=== PATIENT | male | born 1945 | race Caucasian/White ===

== ENCOUNTER 2016-06-14 08:23 | Day surgery (SDC) | payer MEDICARE ==
[2016-06-14] MEDS ORDERED: FENTANYL PF 100MCG/2ML VIAL IV ONE (14:06)
[2016-06-14] MEDS ORDERED: PROPOFOL 10 MG/ML VIAL IV ONE (14:06)
--- NOTE | 2016-06-18 08:51 | Operative Note ---
DATE OF SURGERY: 06/14/2016 SURGEON: Tono Welch MD OPERATION: ESOPHAGOGASTRODUODENOSCOPY. INDICATIONS: This is a 71-year-old male with a history of epigastric pain who presented for esophagogastroduodenoscopy. POSTOPERATIVE DIAGNOSES: 1. Normal esophagus. 2. Diffuse gastritis with erosions. 3. Duodenitis with duodenal ulcer. ANESTHESIA: Sedation is per Anesthesia. Pulse oximetry was monitored throughout the procedure to maintain O2 saturation of 90% or greater. Supplemental oxygen was administered via nasal cannula. Cardiac and vital signs were monitored throughout the duration of the procedure, and they were stable. The procedure of esophagogastroduodenoscopy and risks and benefits of the procedure, including the risk of bleeding and perforation, among others, were explained to the patient who voiced understanding and desired to have the procedure done. Physical examination was performed, and the patient was found stable for sedation. PROCEDURE: The patient was placed in the left lateral position. Sedation was initiated. A plastic bite block was inserted into the oral cavity. The Olympus [id number] gastroscope was introduced into the oral cavity and advanced to the proximal esophagus without difficulty. The esophageal mucosa was carefully examined upon introduction of the gastroscope. The proximal, mid, and distal esophageal mucosa appeared normal. The gastroscope was then advanced into the stomach, and surveillance of the stomach revealed diffuse erythema with erosions involving the gastric body and antrum but no ulcers were noted. The gastroscope was then advanced to the descending duodenum without difficulty. The duodenal bulb appeared diffusely erythematous with shallow ulcers that were noted. There were no mass lesions noted. The gastroscope was then withdrawn into the stomach and retroflexion was performed. There were no other lesions noted. The gastroscope was then withdrawn while carefully examining the gastric and esophageal mucosa. No other lesions noted. Multiple duodenal and gastric biopsies were obtained. He remained with stable vital signs and was transferred to the recovery room. RECOMMENDATIONS: 1. I will give him a trial of Protonix 40 mg p.o. daily since he has been on omeprazole without any significant help. 2. We will follow up on the biopsies. 3. I would be happy to see him back in the office as needed. Thank you for allowing me to participate in the care of your patient. Tono Welch MD CC: Dr. Curtis PEREZ
== END 2016-06-14 10:16 | disposition home or self-care (01) ==
LOC: HOP 08:23
PROVIDERS: ATTEND Internal Medicine Gastroenterology
DX: R10.13 Epigastric pain (principal); K29.50 Unspecified chronic gastritis without bleeding; K25.7 Chronic gastric ulcer without hemorrhage or perforation; K29.80 Duodenitis without bleeding; I10 Essential (primary) hypertension
CPT/HCPCS: 43239; 00740; J3010

== ENCOUNTER 2016-08-07 08:18 | Observation (INO) | payer MEDICARE ==
[2016-08-07 08:52] LABS: BASO % 0.5 % (0-6); EOS % 2.6 % (0-6); GRAN % 62.6 % (47-80); HEMATOCRIT 45.4 % (42.0-52.0); HEMOGLOBIN 15.3 gm/dl (14.0-18.0); LYMPH % 24.7 % (16-45); MEAN CORPUSCULAR HEMOGLOBIN 32.7 pg (27-33); MEAN CORPUSCULAR HGB CONC 33.7 g/dl (32-36); MEAN PLATELET VOLUME 9.8 fl (7.4-10.4); MONO % 9.6 % (0-9); PLATELET COUNT 228 K/uL (130-400); RED BLOOD COUNT 4.68 M/uL (4.40-5.70); RED CELL DISTRIBUTION WIDTH 12.7 % (11.5-14.5); WHITE BLOOD COUNT W/O DIFF 7.3 K/uL (4.2-12.2)
--- NOTE | 2016-08-07 08:54 | Emergency Department Record ---
History of Present Illness - General Chief Complaint: Chest Pain Stated Complaint: WEIRD SENSATION ON CHEST Time Seen by Provider: 08/07/16 08:33 Source: Patient Mode of Arrival: Ambulatory Limitations: No limitations - History of Present Illness Initial Comments: The patient is here with a one month hx of a "funny sensation" to the R upper chest. The discomfort is intermittent and seems to be worse the last few days. He denies any pain, SOB, JUJU, sweating or nausea with the sensation. Due to the symptoms being worse the last couple of days he decided to come to the ER. There is no KAISER but he has had mild CP with exertion. There has been no cough, fever or any recent illnesses. Onset/Timin -: Month(s) Pain Location: Right chest Severity: Mild Severity scale (1-10): 4 Quality: Aching Consistency: Intermittent Improves With: Nothing Context: New medications Treatments Prior to Arrival: None - Related Data Home Medications Medication Instructions Recorded Confirmed Last Taken Alprazolam [Xanax] 0.5 mg PO Q8H PRN 01/07/15 08/07/16 1 Day Ago Calcium Carb/Vitamin D3/Vit K1 1 each PO DAILY 01/07/15 08/07/16 1 Day Ago [Calcium + Vit D & K Chew Tab] Cholecalciferol (Vitamin D3) 5,000 unit PO DAILY 01/07/15 08/07/16 1 Day Ago [Vitamin D3] Cyanocobalamin (Vitamin B-12) 2,500 mcg SL DAILY 01/07/15 08/07/16 1 Day Ago [Vitamin B-12] Fluticasone Propionate [Flonase 15.8 ml NS DAILY 01/07/15 08/07/16 1 Day Ago Allergy Relief] Gabapentin [Neurontin] 300 mg PO TID 01/07/15 08/07/16 1 Day Ago Glucosamine Sulfate/MSM 1 each PO DAILY 01/07/15 08/07/16 1 Day Ago [Glucosamine-MSM Caplet] Hydrocodone/Acetaminophen [[place] 2 tab PO Q6H PRN 01/07/15 08/07/16 1 Day Ago 7.5mg/325mg] Hydroxychloroquine Sulfate 200 mg PO BID 01/07/15 08/07/16 1 Day Ago [Plaquenil] Lisinopril 20 mg PO DAILY 01/07/15 08/07/16 1 Day Ago Multivitamin [Multi-Vitamin Daily] 1 each PO DAILY 01/07/15 08/07/16 1 Day Ago Polyethylene Glycol 3350 1 packet PO DAILY 01/07/15 08/07/16 1 Day Ago Pravastatin Sodium [Pravachol] 10 mg PO DAILY 01/07/15 08/07/16 1 Day Ago Testosterone Cypionate [Testone 200 mg IM WEEKLY 01/07/15 08/07/16 1 Day Ago Cik] Duloxetine HCl [Cymbalta] 60 mg PO DAILY 05/14/15 08/07/16 1 Day Ago Allergies Allergy/AdvReac Type Severity Reaction Status Date / Time No Known Drug Allergies Allergy Verified 08/07/16 08:30 Travel Screening - Travel/Exposure Within Last 30 Days Have you traveled within the last 30 days?: No - Travel/Exposure Within Last Year Have you traveled outside the [place] in the last year?: No - Additonal Travel Details Have you been exposed to anyone with a communicable illness?: No - Travel Symptoms Symptom Screening: None Review of Systems Constitutional: Denies: Chills, Fever Eyes: Denies: Eye discharge ENT: Denies: Congestion Respiratory: Denies: Cough, Dyspnea Past Medical History - SOCIAL HISTORY Smoking Status: Never smoker Alcohol Use: None Drug Use: None - RESPIRATORY Hx Respiratory Disorders: No Hx Sleep Apnea: Yes Hx of CPAP: Yes - CARDIOVASCULAR Hx Cardio Disorders: Yes Hx Hypertension: Yes - NEURO Hx Neuro Disorders: Yes Hx Neuropathy: Yes - GI Hx GI Disorders: Yes Hx Reflux: Yes Hx Ulcer: Yes - Hx Genitourinary Disorders: Yes Hx Kidney Stones: Yes - ENDOCRINE Hx Endocrine Disorders: No Hx Diabetes: No Hx Thyroid Disease: No - MUSCULOSKELETAL Hx Musculoskeletal Disorders: Yes Comment:: neuropathy pain - PSYCH Hx Psych Problems: Yes Hx Anxiety: Yes - HEMATOLOGY/ONCOLOGY Hx Hematology/Oncology Disorders: No Family Medical History Any Significant Family History?: Yes Hx Diabetes: Mother, Brother/Sister Physical Exam - General General Appearance: Alert, Oriented x3, Cooperative, No acute distress - Head Head exam: Atraumatic, Normal inspection - Eye Eye exam: Normal appearance, PERRL - ENT Throat exam: Normal inspection. negative: Tonsillar erythema, Tonsillar exudate - Neck Neck exam: Normal inspection, Full ROM. negative: Tenderness - Respiratory Respiratory exam: Normal lung sounds bilaterally. negative: Respiratory distress - Cardiovascular Cardiovascular Exam: Regular rate, Normal rhythm, Normal heart sounds - GI/Abdominal GI/Abdominal exam: Soft, Normal bowel sounds. negative: Tenderness - Extremities Extremities exam: Normal inspection, Full ROM, Normal capillary refill. negative: Tenderness - Back Back exam: Reports: Normal inspection - Neurological Neurological exam: Alert, Normal gait. negative: Abnormal gait, Motor sensory deficit - Psychiatric Psychiatric exam: negative: Agitated, Anxious, Depressed Course Vital Signs 08/07/16 08:21 Temperature 98.2 F Pulse Rate 96 H Respiratory 18 Rate Blood Pressure 147/82 Pulse Ox 96 - Reevaluation(s) Reevaluation #1: The patient is doing very well at this time. He denies any pain or discomfort. I did discuss the lab results with him and the fact that the heart lab tests are WNL. 08/07/16 10:36 Reevaluation #2: I did discuss the case with Dr. Kirkland and she does accept the patient for admission. 08/07/16 10:50 Medical Decision Making - Data Complexity MDM Data: Labs Ordered and/or Reviewed, X-Ray Ordered and/or Reviewed, EKG Ordered and/or Reviewed - Lab Data Result diagrams: 08/07/16 08:45 08/07/16 08:45 - EKG Data -: EKG Interpreted by Me EKG: No Acute Changes, Normal EKG - Radiology Data Radiology results: Report reviewed (CXR: Neg) Disposition Disposition: Admit Clinical Impression: Chest pain Qualifiers: Chest pain type: other chest pain Qualified Code(s): R07.89 - Other chest pain ; R07.8 - Other chest pain Disposition: Still a Patient at [facility] Decision to Admit: Admit from ER Decision to Admit Date: 08/07/16 Decision to Admit Time: 10:51 Accepting Physician: Marita Time Discussed w/Accepting Physician: 10:51 Condition: (2) Stable Forms: Patient Portal Access Time of Disposition: 10:51
[2016-08-07 09:04] LABS: ANION GAP 15.5 (7-16); BLOOD UREA NITROGEN 12 mg/dL (9-20); CARBON DIOXIDE 23.5 mmol/L (22-30); CREATINE PHOSPHOKINASE 277 U/L (55-170); CREATININE 0.8 mg/dL (0.66-1.25); EST GLOMERULAR FILTRATION RATE > 60 ml/min; GLUCOSE,RANDOM 147 mg/dL (70-110)
[2016-08-07 09:05] LABS: INR 0.95; PARTIAL THROMBOPLASTIN TIME 26.1 SECONDS (24.5-39.1); PROTHROMBIN TIME (PATIENT) 10.7 SECONDS (9.5-12.1)
[2016-08-07 09:16] LABS: CKMB 3.6 ug/L (0-6)
[2016-08-07 09:20] LABS: TROPONIN I < 0.012 ng/mL (0.00-0.034)
[2016-08-07] MEDS ORDERED: HYDROCODONE/APAP 10/325 TABLET PO ONE (10:29)
[2016-08-07] MEDS ORDERED: ASPIRIN 325 MG TAB ENTERIC-COATED PO ONE (10:50)
[2016-08-07] MEDS ORDERED: HYDROCODONE/APAP 10/325 TABLET PO PRN (12:45)
[2016-08-07] MEDS ORDERED: ONDANSETRON 4 MG ODT TABLET SL PRN (13:52)
--- NOTE | 2016-08-07 13:53 | History & Physical ---
History of Present Illness - Date of Service Date of Service for History & Physical: 08/07/16 - History of Present Illness Admitting Diagnosis: 1. Chest Pain, R/O MT. History of Present Illness: 71 yo M with past medical history of .... presents for one month hx of a "funny sensation" to the R upper chest that has been worsening. The discomfort is intermittent and seems to be worse the last few days. He denies any pain, SOB, JUJU, sweating or nausea with the sensation. Due to the symptoms being worse the last couple of days he decided to come to the ER today per report. There is no KAISER but he has had mild CP with exertion. There has been no cough, fever or any recent illnesses. Per ER, symptoms improved after benzodiazepine given. Admitted for ACS rule out. PSx: josette, back, lithotripsy, EGD< colonoscopy PMx: Sleep apnea with CPAP, HTN, neuropathy, GERD, ulcer, kidney stone, arthritis, anxiety PCP: Travel Screening - Travel/Exposure Within Last 30 Days Have you traveled within the last 30 days?: No - Travel/Exposure Within Last Year Have you traveled outside the [place] in the last year?: No - Additonal Travel Details Have you been exposed to anyone with a communicable illness?: No - Travel Symptoms Symptom Screening: None Review of Systems Constitutional: Denies: Chills, Fever Eyes: Denies: Eye discharge ENT: Denies: Congestion Respiratory: Denies: Cough, Dyspnea Past Medical History - SOCIAL HISTORY Smoking Status: Never smoker Alcohol Use: Rare Drug Use: None - RESPIRATORY Hx Respiratory Disorders: No Hx Sleep Apnea: Yes Hx of CPAP: Yes - CARDIOVASCULAR Hx Cardio Disorders: Yes Hx Hypertension: Yes - NEURO Hx Neuro Disorders: Yes Hx Neuropathy: Yes - GI Hx GI Disorders: Yes Hx Reflux: Yes Hx Ulcer: Yes - Hx Genitourinary Disorders: Yes Hx Kidney Stones: Yes - ENDOCRINE Hx Endocrine Disorders: No Hx Diabetes: No Hx Thyroid Disease: No - MUSCULOSKELETAL Hx Musculoskeletal Disorders: Yes Comment:: neuropathy pain - PSYCH Hx Psych Problems: Yes Hx Anxiety: Yes - HEMATOLOGY/ONCOLOGY Hx Hematology/Oncology Disorders: No Family Medical History Any Significant Family History?: Yes Hx Diabetes: Mother, Brother/Sister H&P Meds/Allergies - Allergies Allergies: Allergies Allergy/AdvReac Type Severity Reaction Status Date / Time No Known Drug Allergies Allergy Verified 08/07/16 08:30 - Home Medications Home Medications Medication Instructions Recorded Confirmed Last Taken Alprazolam [Xanax] 0.5 mg PO Q8H PRN 01/07/15 08/07/16 1 Day Ago Calcium Carb/Vitamin D3/Vit K1 1 each PO DAILY 01/07/15 08/07/16 1 Day Ago [Calcium + Vit D & K Chew Tab] Cholecalciferol (Vitamin D3) 5,000 unit PO DAILY 01/07/15 08/07/16 1 Day Ago [Vitamin D3] Cyanocobalamin (Vitamin B-12) 2,500 mcg SL DAILY 01/07/15 08/07/16 1 Day Ago [Vitamin B-12] Fluticasone Propionate [Flonase 15.8 ml NS DAILY 01/07/15 08/07/16 1 Day Ago Allergy Relief] Gabapentin [Neurontin] 300 mg PO TID 01/07/15 08/07/16 1 Day Ago Glucosamine Sulfate/MSM 1 each PO DAILY 01/07/15 08/07/16 1 Day Ago [Glucosamine-MSM Caplet] Hydrocodone/Acetaminophen [[place] 2 tab PO Q6H PRN 01/07/15 08/07/16 1 Day Ago 7.5mg/325mg] Hydroxychloroquine Sulfate 200 mg PO BID 01/07/15 08/07/16 1 Day Ago [Plaquenil] Lisinopril 20 mg PO DAILY 01/07/15 08/07/16 1 Day Ago Multivitamin [Multi-Vitamin Daily] 1 each PO DAILY 01/07/15 08/07/16 1 Day Ago Polyethylene Glycol 3350 1 packet PO DAILY 01/07/15 08/07/16 1 Day Ago Pravastatin Sodium [Pravachol] 10 mg PO DAILY 01/07/15 08/07/16 1 Day Ago Testosterone Cypionate [Testone 200 mg IM WEEKLY 01/07/15 08/07/16 1 Day Ago Cik] Duloxetine HCl [Cymbalta] 60 mg PO DAILY 05/14/15 08/07/16 1 Day Ago - Active Medications Active Medications: Current Medications Acetaminophen/Hydrocodone Bitart ([place] 10mg/325mg) 1 each PO QID PRN PRN Reason: Pain - General Acetaminophen/Hydrocodone Bitart ([place] 10mg/325mg) 2 each PO QID PRN PRN Reason: Pain - General Alprazolam (Xanax) 0.5 mg PO Q8H PRN PRN Reason: ANXIETY Aspirin (Ecotrin (Ec)) 325 mg PO DAILY BRADY Gabapentin (Neurontin) 300 mg PO TID BRADY Hydroxychloroquine Sulfate (Plaquenil) 400 mg PO 1800 BRADY Lisinopril (Zestril) 20 mg PO 1800 BRADY Polyethylene Glycol (Miralax) 17 gm PO 1800 BRADY Physical Exam - Vital Signs Vital Signs: Vital Signs - Last 24 Hrs Temp Pulse Resp BP Pulse Ox 08/07/16 13:09 98.2 F 88 130/82 96 08/07/16 12:01 90 20 08/07/16 11:09 98.2 F 79 16 135/83 95 - General General Appearance: Alert, Oriented x3, Cooperative, No acute distress Limitations: No limitations - Head Head exam: Atraumatic, Normal inspection - Eye Eye exam: Normal appearance, PERRL - ENT Throat exam: Normal inspection. negative: Tonsillar erythema, Tonsillar exudate - Neck Neck exam: Normal inspection, Full ROM. negative: Tenderness - Respiratory Respiratory exam: Normal lung sounds bilaterally. negative: Respiratory distress - Cardiovascular Cardiovascular Exam: Regular rate, Normal rhythm, Normal heart sounds - GI/Abdominal GI/Abdominal exam: Soft, Normal bowel sounds. negative: Tenderness - Extremities Extremities exam: Normal inspection, Full ROM, Normal capillary refill. negative: Tenderness - Back Back exam: Reports: Normal inspection - Neurological Neurological exam: Alert, Normal gait. negative: Abnormal gait, Motor sensory deficit - Psychiatric Psychiatric exam: negative: Agitated, Anxious, Depressed Results - Labs Result Diagrams: 08/07/16 08:45 08/07/16 08:45 VTE H&P Assessment - Risk for VTE Risk for VTE: Yes Risk Level: Low Risk Assessment Date: 08/07/16 Risk Assessment Time: 15:47 VTE Orders Placed or Will Be Placed: No VTE Reason for No Prophylaxis: Not Indicated (will be discharged tomorrow) Plan - Detailed Diagnosis and Plan (1) Chest pain Current Visit: Yes Status: Acute Qualifiers: Chest pain type: other chest pain Qualified Code(s): R07.89 - Other chest pain; R07.8 - Other chest pain Base Code: R07.9 - CHEST PAIN, UNSPECIFIED
[2016-08-07] MEDS: ALPRAZOLAM 0.25 MG TABLET PO PRN ×2 (14:43→22:57)
[2016-08-07] MEDS: HYDROCODONE/APAP 10/325 TABLET PO PRN ×2 (14:44→19:50)
[2016-08-07 15:46] LABS: CKMB 3.2 ug/L (0-6)
[2016-08-07 15:47] LABS: TROPONIN I < 0.012 ng/mL (0.00-0.034)
[2016-08-07] MEDS: GABAPENTIN 300 MG CAPSULE PO SCH ×2 (16:43→22:55)
[2016-08-07] MEDS ORDERED: HYDROXYCHLOROQUINE SULFATE 200 MG TABLET PO SCH (18:00)
[2016-08-07] MEDS ORDERED: POLYETHYLENE GLY 17 GM PACKET PO SCH (18:00)
[2016-08-07] MEDS ORDERED: LISINOPRIL 20 MG TABLET PO SCH (18:00)
[2016-08-08] MEDS: HYDROCODONE/APAP 10/325 TABLET PO PRN ×3 (00:28→12:45)
[2016-08-08 01:31] LABS: CKMB 2.3 ug/L (0-6); TROPONIN I < 0.012 ng/mL (0.00-0.034)
[2016-08-08] MEDS: GABAPENTIN 300 MG CAPSULE PO SCH ×2 (06:38→10:58)
--- NOTE | 2016-08-08 07:20 | RADIOLOGY REPORT ---
EXAM: CHEST, TWO VIEWS HISTORY: DIFFICULTY BREATHING. TECHNIQUE: Frontal and lateral views of the chest were performed. FINDINGS: The heart size is normal. No pulmonary vascular congestion. No infiltrate or pleural effusion. The osseous structures are normal. IMPRESSION: NEGATIVE CHEST EXAMINATION. JOB NUMBER: [id number] MTDD
--- NOTE | 2016-08-08 07:23 | ULTRASOUND REPORT ---
EXAM: ULTRASOUND OF THE AORTA HISTORY: PAIN. TECHNIQUE: Sonographic evaluation of the abdominal aorta was performed using mckeon scale imaging with the addition of Doppler. Comparison: None. FINDINGS: The proximal abdominal aorta measures 1.4 x 1.6 cm. The mid abdominal aorta measures 1.6 x 0.9 cm. The distal abdominal aorta measures 1.1 x 1.3 cm. The iliac arteries measure 7 mm x 9 mm and 8 mm x 11 mm. IMPRESSION: UNREMARKABLE ABDOMINAL AORTIC SONOGRAM. JOB NUMBER: [id number] MTDD
[2016-08-08] MEDS ORDERED: PRAVASTATIN SODIUM 10 MG PO SCH (10:00)
[2016-08-08] MEDS ORDERED: ASPIRIN 325 MG TAB ENTERIC-COATED PO SCH (10:00)
[2016-08-08] MEDS ORDERED: Non-Formulary MISC (Duloxetine Hcl [Cymbalta] 60 MG) PO SCH (10:00)
--- NOTE | 2016-08-08 12:09 | Discharge Summary ---
Providers Discharge Summary Date: 08/08/16 Date of admission: 08/07/16 11:05 Expected Date of Discharge: 08/08/16 Attending physician: FELICIA GARCIA Primary care physician: SHERMAN TAYLOR M.D. Physical Exam - Vital Signs Vital Signs: Vital Signs - Last 24 Hrs Temp Pulse Resp BP Pulse Ox 08/08/16 08:52 98 H 20 08/08/16 05:00 99.0 F 77 16 106/64 95 08/08/16 00:44 98.7 F 73 21 115/69 95 08/07/16 20:27 97.9 F 81 21 140/67 96 08/07/16 17:29 98.5 F 79 12 125/71 94 L 08/07/16 17:09 97.6 F 80 16 128/76 08/07/16 13:09 98.2 F 88 130/82 96 - General General Appearance: Alert, Oriented x3, Cooperative, No acute distress Limitations: No limitations - Head Head exam: Atraumatic, Normal inspection - Eye Eye exam: Normal appearance, PERRL - ENT Throat exam: Normal inspection. negative: Tonsillar erythema, Tonsillar exudate - Neck Neck exam: Normal inspection, Full ROM. negative: Tenderness - Respiratory Respiratory exam: Normal lung sounds bilaterally. negative: Respiratory distress - Cardiovascular Cardiovascular Exam: Regular rate, Normal rhythm, Normal heart sounds Peripheral Pulses: 3+: Dorsalis Pedis (R), Dorsalis Pedis (L) - GI/Abdominal GI/Abdominal exam: Soft, Normal bowel sounds. negative: Tenderness - Extremities Extremities exam: Normal inspection, Full ROM, Normal capillary refill. negative: Tenderness - Back Back exam: Reports: Normal inspection - Neurological Neurological exam: Alert, Normal gait. negative: Abnormal gait, Motor sensory deficit - Psychiatric Psychiatric exam: negative: Agitated, Anxious, Depressed Hospitalization - Hospitalization Admission Diagnosis: 1. Chest Pain, R/O VT. - Problem List/Discharge Diagnosis (1) Chest pain Current Visit: Yes Status: Acute Discharge Diagnosis: Chest pain type: other chest pain Qualified Code(s): R07.89 - Other chest pain; R07.8 - Other chest pain Base Code: R07.9 - CHEST PAIN, UNSPECIFIED Comment: 3/2- cardiac etiology of chest pain unlikely - chest wall brusing as part of differential with patient stated prior bruising to right side of chest, may take 3-6 months to heal - cardiac enzymes x 3 negative - chest pain relieved by benzo - Aortic US negative as performed during this hospitalization - telemetry remained NSR with no change in ST segment during hospitalization - VS remained stable - CXR negative - follow up PCP in 1 week for any other residual factors - nursing to schedule cardiology follow up with Man altamirano for baseline testing - Hospitalization Course Disposition: Home, Self-Care Condition at Discharge: (1) Good Discharge Medications - Discharge Medications Home Medications: Ambulatory Orders Calcium Carb/Vitamin D3/Vit K1 [Calcium-Vit D3-Vit K Soft Chew] 1 each PO DAILY 01/07/15 [Last Taken 1 Day Ago] Cholecalciferol (Vitamin D3) [Vitamin D3] 5,000 unit PO DAILY 01/07/15 [Last Taken 1 Day Ago] Cyanocobalamin (Vitamin B-12) [Vitamin B-12] 2,500 mcg SL DAILY 01/07/15 [Last Taken 1 Day Ago] Fluticasone Propionate [Flonase Allergy Relief] 15.8 ml NS DAILY 01/07/15 [Last Taken 1 Day Ago] Glucosamine Sulfate/MSM [Glucosamine-MSM Caplet] 1 each PO DAILY 01/07/15 [Last Taken 1 Day Ago] Hydrocodone/Acetaminophen [[place] 7.5mg/325mg] 2 tab PO Q6H PRN 01/07/15 [Last Taken 1 Day Ago] Hydroxychloroquine Sulfate [Plaquenil] 200 mg PO BID 01/07/15 [Last Taken 1 Day Ago] Lisinopril 20 mg PO DAILY 01/07/15 [Last Taken 1 Day Ago] Multivitamin [Multi-Vitamin Daily] 1 each PO DAILY 01/07/15 [Last Taken 1 Day Ago] Polyethylene Glycol 3350 1 packet PO DAILY 01/07/15 [Last Taken 1 Day Ago] Pravastatin Sodium [Pravachol] 10 mg PO DAILY 01/07/15 [Last Taken 1 Day Ago] Testosterone Cypionate [Testone Cik] 200 mg IM WEEKLY 01/07/15 [Last Taken 1 Day Ago] Duloxetine HCl [Cymbalta] 60 mg PO DAILY 05/14/15 [Last Taken 1 Day Ago] Alprazolam [Xanax] 0.5 mg PO Q8H PRN #0 tablet 08/08/16 [Last Taken Unknown] Gabapentin [Neurontin] 300 mg PO TID capsule 08/08/16 [Last Taken Unknown] Discharge Plan - Discharge Instructions Activity at Discharge: Increase Activity as Tolerated Diet at Discharge: Regular Diet
== END 2016-08-08 13:55 | disposition home or self-care (01) ==
LOC: ER 08:18 → MEDSURG 11:05
PROVIDERS: ADMIT Family Medicine; ATTEND Family Medicine
DX: R07.89 Other chest pain (principal); I10 Essential (primary) hypertension; G62.9 Polyneuropathy, unspecified
CPT/HCPCS: 99285 ×2; 82550; 85025; 85730; 85610; 82553 ×2; 84484 ×2; 80048; 85379; 71020; 76775; 93005 ×2; 93010 ×2; G0378 ×2; J3490 ×2; 99220

== ENCOUNTER 2017-10-29 17:46 | Emergency (ER) | payer MEDICARE ==
--- NOTE | 2017-10-29 18:13 | Emergency Department Record ---
History of Present Illness - General Chief complaint: Pain Stated complaint: RT KNEE PAIN/ PAIN FROM HEEL-MID THIGH SAME LEG Time Seen by Provider: 10/29/17 17:59 Source: Patient Mode of Arrival: Ambulatory Limitations: No limitations - History of Present Illness Initial comments: The patient is here due to worsening of his chronic R leg and knee pain. He has been having pain to the knees and ankles for some time but it got worse in the R knee over the past week. Today the pain became severe and is radiating to the R thigh and down the R leg. He denies any leg numbness or weakness but feels the R knee is mildly swollen. There is no hx of CP, SOB, JUJU, fever, or back pain. MD Complaint: Extremity pain, Joint pain Onset/Timin -: Days(s) Location: Left, Knee, Lower Leg, Thigh History of Same: No Severity scale (1-10): 10 Quality: Other Consistency: Constant Improves with: Nothing Worsens with: Walking Associated Symptoms: Denies other symptoms - Related Data Home Medications Medication Instructions Recorded Confirmed Last Taken Alprazolam [Xanax] 0.5 mg PO Q8H PRN 10/29/17 10/29/17 Unknown Cimetidine [Tagamet] 200 mg PO ASDIR 10/29/17 10/29/17 Unknown Dicyclomine HCl 20 mg PO BID 10/29/17 10/29/17 Unknown Gabapentin [Neurontin] 300 mg PO Q6H 10/29/17 10/29/17 Unknown Hydrocodone/Acetaminophen [[place] 1 each PO Q6H 10/29/17 10/29/17 Unknown 10-325 Tablet] Mirtazapine 15 mg PO QHS 10/29/17 10/29/17 Unknown Morphine Sulfate [Ms Contin] 30 mg PO Q12H 10/29/17 10/29/17 Unknown Allergies Allergy/AdvReac Type Severity Reaction Status Date / Time No Known Drug Allergies Allergy Verified 08/07/16 08:30 Travel Screening - Travel/Exposure Within Last 30 Days Have you traveled within the last 30 days?: No Review of Systems Constitutional: Denies: Chills, Fever Eyes: Denies: Eye discharge ENT: Denies: Congestion Respiratory: Denies: Cough, Dyspnea Cardiovascular: Denies: Arrhythmia, Chest pain Past Medical History - SOCIAL HISTORY Smoking Status: Never smoker - RESPIRATORY Hx Respiratory Disorders: Yes Hx Sleep Apnea: Yes Hx of CPAP: Yes - CARDIOVASCULAR Hx Cardio Disorders: Yes Hx Hypertension: Yes - NEURO Hx Neuro Disorders: Yes Hx Neuropathy: Yes - GI Hx GI Disorders: Yes Hx Reflux: Yes Hx Ulcer: Yes - Hx Genitourinary Disorders: Yes Hx Kidney Stones: Yes - ENDOCRINE Hx Endocrine Disorders: No Hx Diabetes: No Hx Thyroid Disease: No - MUSCULOSKELETAL Hx Musculoskeletal Disorders: Yes Comment:: neuropathy pain - PSYCH Hx Psych Problems: Yes Hx Anxiety: Yes - HEMATOLOGY/ONCOLOGY Hx Hematology/Oncology Disorders: No Family Medical History Any Significant Family History?: Yes Hx Diabetes: Mother, Brother/Sister Physical Exam - General General Appearance: Alert, Oriented x3, Cooperative, No acute distress - Head Head exam: Atraumatic, Normocephalic, Normal inspection - Eye Eye exam: Normal appearance, PERRL - Neck Neck exam: Normal inspection, Full ROM. negative: Tenderness - Respiratory Respiratory exam: Normal lung sounds bilaterally. negative: Respiratory distress - Cardiovascular Cardiovascular Exam: Regular rate, Normal rhythm, Normal heart sounds - GI/Abdominal GI/Abdominal exam: Soft, Normal bowel sounds. negative: Tenderness - Extremities Extremities exam: Calf tenderness (mild R leg.), Joint swelling (There may be a very mild joint effusion.), Normal capillary refill, Tenderness (There is mild R knee tenderness but no warmth or erythema.), Other (The R lower leg is NVI with normal DP pulses and equal bilaterally 2+.). negative: Normal inspection ( There may be a very mild R knee effusion but no erythema, edema, or bruising.), Full ROM (There is decreased ROM to the R knee due to pain.), Pedal edema - Back Back exam: Reports: Normal inspection, Full ROM. Denies: Muscle spasm, Rash noted, Tenderness - Neurological Neurological exam: Abnormal gait (Due to the R leg pain.), Alert. negative: Motor sensory deficit, Normal gait Course Vital Signs 10/29/17 17:54 Temperature 98.1 F Pulse Rate 88 Respiratory 18 Rate Blood Pressure 149/73 Pulse Ox 96 - Reevaluation(s) Reevaluation #1: The patient is presently at doppler. I did discuss the case with Dr. Ayoub. She will be assuming care for the patient at 19:00 due to shift change. 10/29/17 18:41 Medical Decision Making - Lab Data Result diagrams: 10/29/17 18:04 10/29/17 18:04 Disposition Forms: Patient Portal Access Quality - Quality Measures Quality Measures: N/A - Blood Pressure Screening View Details: Yes Does Patient Have Any of the Following: Active Dx of HTN Blood Pressure Classification: Hypertensive Reading Systolic Measurement: 149 Diastolic Measurement: 73 Screening for High Blood Pressure: Patient Exclusion, Hx of HTN [G9744]
[2017-10-29] MEDS ORDERED: ONDANSETRON HCL IV 4 MG/2 ML VIAL IVP ONE (18:28)
[2017-10-29] MEDS ORDERED: MORPHINE SULFATE 10 MG/ML VIAL IVP ONE (18:28)
[2017-10-29] MEDS ORDERED: MORPHINE SULFATE 4MG/ML PREFILLED SYRINGE IVP ONE (18:54)
[2017-10-29 19:05] LABS: BASO % 0.7 % (0-6); EOS % 1.6 % (0-6); GRAN % 64.2 % (47-80); HEMATOCRIT 44.6 % (42.0-52.0); HEMOGLOBIN 14.8 gm/dl (14.0-18.0); LYMPH % 24.8 % (16-45); MEAN CELL VOLUME 96.7 fl (81-97); MEAN CORPUSCULAR HEMOGLOBIN 32.1 pg (27-33); MEAN CORPUSCULAR HGB CONC 33.2 g/dl (32-36); MEAN PLATELET VOLUME 9.8 fl (7.4-10.4); MONO % 8.7 % (0-9); PLATELET COUNT 202 K/uL (130-400); RED BLOOD COUNT 4.61 M/uL (4.40-5.70); RED CELL DISTRIBUTION WIDTH 12.7 % (11.5-14.5); WHITE BLOOD COUNT W/O DIFF 7.6 K/uL (4.2-12.2)
[2017-10-29 19:18] LABS: BLOOD UREA NITROGEN 15 mg/dL (8-23); CREATININE 0.7 mg/dL (0.7-1.2); EST GLOMERULAR FILTRATION RATE > 60 mL/min
[2017-10-29 19:21] LABS: GLUCOSE,RANDOM 152 mg/dL (74-109)
[2017-10-29 19:24] LABS: C-REACTIVE PROTEIN 0.51 mg/dL (<0.5)
[2017-10-29 19:36] LABS: ERYTHROCYTE SEDIMENTATION RATE 7 mm/hr (0-20)
--- NOTE | 2017-10-29 19:40 | Emergency Department Record ---
History of Present Illness - General Chief complaint: Pain Stated complaint: RT KNEE PAIN/ PAIN FROM HEEL-MID THIGH SAME LEG Time Seen by Provider: 10/29/17 17:59 Source: Patient Mode of Arrival: Ambulatory Limitations: No limitations - History of Present Illness Onset/Timin -: Days(s) Location: Left, Knee, Lower Leg, Thigh History of Same: No Severity scale (1-10): 10 Quality: Other Consistency: Constant Improves with: Nothing Worsens with: Walking Associated Symptoms: Denies other symptoms - Related Data Home Medications Medication Instructions Recorded Confirmed Last Taken Alprazolam [Xanax] 0.5 mg PO Q8H PRN 10/29/17 10/29/17 Unknown Cimetidine [Tagamet] 200 mg PO ASDIR 10/29/17 10/29/17 Unknown Dicyclomine HCl 20 mg PO BID 10/29/17 10/29/17 Unknown Gabapentin [Neurontin] 300 mg PO Q6H 10/29/17 10/29/17 Unknown Hydrocodone/Acetaminophen [Valders 1 each PO Q6H 10/29/17 10/29/17 Unknown 10-325 Tablet] Mirtazapine 15 mg PO QHS 10/29/17 10/29/17 Unknown Morphine Sulfate [Ms Contin] 30 mg PO Q12H 10/29/17 10/29/17 Unknown Allergies Allergy/AdvReac Type Severity Reaction Status Date / Time No Known Drug Allergies Allergy Verified 08/07/16 08:30 Travel Screening - Travel/Exposure Within Last 30 Days Have you traveled within the last 30 days?: No Review of Systems Constitutional: Denies: Chills, Fever Eyes: Denies: Eye discharge ENT: Denies: Congestion Respiratory: Denies: Cough, Dyspnea Cardiovascular: Denies: Arrhythmia, Chest pain Past Medical History - SOCIAL HISTORY Smoking Status: Never smoker - RESPIRATORY Hx Respiratory Disorders: Yes Hx Sleep Apnea: Yes Hx of CPAP: Yes - CARDIOVASCULAR Hx Cardio Disorders: Yes Hx Hypertension: Yes - NEURO Hx Neuro Disorders: Yes Hx Neuropathy: Yes - GI Hx GI Disorders: Yes Hx Reflux: Yes Hx Ulcer: Yes - Hx Genitourinary Disorders: Yes Hx Kidney Stones: Yes - ENDOCRINE Hx Endocrine Disorders: No Hx Diabetes: No Hx Thyroid Disease: No - MUSCULOSKELETAL Hx Musculoskeletal Disorders: Yes Comment:: neuropathy pain - PSYCH Hx Psych Problems: Yes Hx Anxiety: Yes - HEMATOLOGY/ONCOLOGY Hx Hematology/Oncology Disorders: No Family Medical History Any Significant Family History?: Yes Hx Diabetes: Mother, Brother/Sister Physical Exam - General Limitations: No limitations Course Vital Signs 10/29/17 10/29/17 17:54 19:32 Temperature 98.1 F 98.5 F Pulse Rate 88 Pulse Rate [ 79 Pulse Ox Probe] Respiratory 18 18 Rate Blood Pressure 149/73 Blood Pressure 135/77 [Left Arm] Pulse Ox 96 97 - Reevaluation(s) Reevaluation #1: 10/29/17 19:35 pt feels better Medical Decision Making - Lab Data Result diagrams: 10/29/17 19:00 10/29/17 19:00 Lab Results 10/29/17 10/29/17 Range/Units 19:00 19:00 WBC 7.6 (4.2-12.2) K/uL RBC 4.61 (4.40-5.70) M/uL Hgb 14.8 (14.0-18.0) gm/dl Hct 44.6 (42.0-52.0) % MCV 96.7 (81-97) fl MCH 32.1 (27-33) pg MCHC 33.2 (32-36) g/dl RDW 12.7 (11.5-14.5) % Plt Count 202 (130-400) K/uL MPV 9.8 (7.4-10.4) fl Gran % 64.2 (47-80) % Lymphocytes % 24.8 (16-45) % Monocytes % 8.7 (0-9) % Eosinophils % 1.6 (0-6) % Basophils % 0.7 (0-6) % Sodium 140 (136-145) mmol/L Potassium 4.5 (3.4-4.5) mmol/L Chloride 97 L (98-107) mmol/L Carbon Dioxide 26.0 (22-29) mmol/L Anion Gap 17.0 H (7-16) BUN 15 (8-23) mg/dL Creatinine 0.7 (0.7-1.2) mg/dL Estimated GFR > 60 mL/min Random Glucose 152 H (74-109) mg/dL Calcium 9.4 (8.8-10.2) mg/dL C-Reactive Protein 0.51 H (<0.5) mg/dL Disposition Disposition: Discharge Clinical Impression: Knee effusion, right Knee pain, chronic Qualifiers: Laterality: right Qualified Code(s): M25.561 - Pain in right knee; G89.29 - Other chronic pain Disposition: Home, Self-Care Condition: (1) Good Additional Instructions: follow up with family doctor and with orthopedic surgeon. return sooner if worse. ice and elevate. Referrals: MCKENNA DE JESUS [DOCTOR OF OSTEOPATH] - Forms: Patient Portal Access Quality - Quality Measures Quality Measures: N/A - Blood Pressure Screening Does Patient Have Any of the Following: No Blood Pressure Classification: Hypertensive Reading Systolic Measurement: 149 Diastolic Measurement: 73 Screening for High Blood Pressure: < First Hypertensive BP, F/U Documented > [ G8950] First Hypertensive Follow-up Interventions: Follow-up with rescreen GT 1 day and LT 4 weeks.
== END 2017-10-29 19:48 | disposition home or self-care (01) ==
LOC: ER 17:46
DX: G89.29 Other chronic pain (principal); M25.561 Pain in right knee; M79.651 Pain in right thigh; M25.461 Effusion, right knee; I10 Essential (primary) hypertension
CPT/HCPCS: 80048; 85025; 85651; 86140; 96374; 96375; 99284; J2274; J2405